=== PATIENT | male | born 1935 | race Caucasian/White ===

== ENCOUNTER 2017-04-21 13:02 | Emergency (ER) | payer MEDICARE ==
--- NOTE | 2017-04-21 15:59 | XRay Report ---
Right knee: Pain and swelling. Periarticular degenerative spurs are identified involving both medial and lateral compartments. There is a large posterior femoral spurring as well as mild spurring at the superior patellofemoral articulation. There is questionable narrowing of the medial joint compartment. The articular surfaces appeared generally smooth. The bones are well-mineralized. There is good alignment of the knee. The soft tissues may be slightly edematous. No focal findings and no effusion. Impression: Degenerative changes. No acute findings suspected.
[2017-04-21] MEDS ORDERED: PERCOCET 5/325 PO ONE (18:06)
--- NOTE | 2017-04-21 18:21 | Emergency Department Report ---
ED Lower Extremity HPI - General Chief Complaint: Fall Stated Complaint: R KNEE PAIN SLIP/FALL Source: patient, family, EMS Mode of arrival: Stretcher Limitations: No Limitations - History of Present Illness Initial Comments: Pt is an 82 yo male who presents s/p ground level fall who per pt and son, slipped while while walking with the walker yesterday morning. Pt denied LOC or head strike and denies any other complaints. Pt has a history of gout and complained of right knee pain. Pt has been ambulatory and weight bearing on the right lower ext per son. pt was using his leg to push himself up in the bed . 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 MD Complaint: knee injury - Related Data Home Medications Medication Instructions Recorded Confirmed Last Taken Acetaminophen/Codeine [Tylenol #3] 1 tab PO Q4HR PRN 02/15/13 02/15/13 02/15/13 Aspirin [Baby Aspirin] 81 mg PO QDAY 02/15/13 02/15/13 02/09/13 Levothyroxine [Synthroid] 50 mcg PO QAM 02/15/13 02/15/13 02/15/13 Paricalcitol [Zemplar] 1 mcg PO 02/15/13 02/15/13 02/15/13 Probenecid/Colchicine 1 each PO 02/15/13 02/15/13 02/15/13 [Probenecid-Colchicine Tabs] Promethazine [Phenergan] 25 mg PO Q6H PRN 02/15/13 02/15/13 02/15/13 amLODIPine [Norvasc] 5 mg PO DAILY 02/15/13 02/15/13 02/15/13 glipiZIDE [Glipizide ER] 5 mg PO 02/15/13 02/15/13 02/15/13 Previous Rx's Medication Instructions Recorded Last Taken Type HYDROcodone/APAP 7.5-325 [[place] 1 each PO Q6HR PRN #16 tablet 04/21/17 Unknown Rx 7.5/325] Allergies Allergy/AdvReac Type Severity Reaction Status Date / Time No Known Allergies Allergy Unverified 02/15/13 22:40 ED Review of Systems ROS: Stated complaint: R KNEE PAIN SLIP/FALL Other details as noted in HPI Comment: All other systems reviewed and negative Musculoskeletal: arthralgia (history of gout), other (right knee pain) Skin: rash (chronic with erythema in the legs ; bruises easily on daily aspirin) ED Past Medical Hx - Past Medical History Hx Hypertension: Yes Hx Diabetes: Yes Additional medical history: sleep apnea, thyroid, gout - Surgical History Additional Surgical History: 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, appendectomy and sinus surgery as a child - Social History Smoking Status: Never Smoker Substance Use Type: None - Medications Home Medications: Home Medications Medication Instructions Recorded Confirmed Last Taken Type Acetaminophen/Codeine [Tylenol #3] 1 tab PO Q4HR PRN 02/15/13 02/15/13 02/15/13 History Aspirin [Baby Aspirin] 81 mg PO QDAY 02/15/13 02/15/13 02/09/13 History Levothyroxine [Synthroid] 50 mcg PO QAM 02/15/13 02/15/13 02/15/13 History Paricalcitol [Zemplar] 1 mcg PO 02/15/13 02/15/13 02/15/13 History Probenecid/Colchicine 1 each PO 02/15/13 02/15/13 02/15/13 History [Probenecid-Colchicine Tabs] Promethazine [Phenergan] 25 mg PO Q6H PRN 02/15/13 02/15/13 02/15/13 History amLODIPine [Norvasc] 5 mg PO DAILY 02/15/13 02/15/13 02/15/13 History glipiZIDE [Glipizide ER] 5 mg PO 02/15/13 02/15/13 02/15/13 History HYDROcodone/APAP 7.5-325 [[place] 1 each PO Q6HR PRN #16 tablet 04/21/17 Unknown Rx 7.5/325] ED Physical Exam - General Limitations: No Limitations ED Course Vital Signs 04/21/17 04/21/17 04/21/17 15:26 17:00 18:12 Temperature 98.6 F Pulse Rate 82 77 Respiratory 18 22 22 Rate Blood Pressure 138/89 Blood Pressure 150/69 [Left] O2 Sat by Pulse 97 97 Oximetry 04/21/17 04/21/17 18:44 18:59 Temperature Pulse Rate 78 Respiratory 22 20 Rate Blood Pressure Blood Pressure 146/61 [Left] O2 Sat by Pulse 97 96 Oximetry Critical care attestation.: If time is entered above; I have spent that time in minutes in the direct care of this critically ill patient, excluding procedure time. ED Disposition Clinical Impression: Right knee sprain, History of gout Disposition: TO HOME OR SELFCARE Is pt being admited?: No Does the pt Need Aspirin: No Condition: Stable Instructions: Knee Sprain (ED) Additional Instructions: be sure to follow up with the Orthopedist;Return sooner if worse or if further concerns; Be sure to follow up with your primary care doctor or the referral doctor given here Prescriptions: HYDROcodone/APAP 7.5-325 [[place] 7.5/325] 1 each PO Q6HR PRN #16 tablet PRN Reason: Pain Referrals: PRIMARY MD GÓMEZ [Primary Care Provider] - 3-5 Days RONEY TRUJILLO MD [Staff Physician] - 3-5 Days
[2017-04-21 19:01] VITALS: BP 146/61
== END 2017-04-21 21:30 | disposition home or self-care (01) ==
LOC: ED 13:02
DX: S83.8X1A Sprain of other specified parts of right knee, initial encounter (principal); E11.9 Type 2 diabetes mellitus without complications; M10.9 Gout, unspecified; I10 Essential (primary) hypertension; G47.30 Sleep apnea, unspecified; Z79.2 Long term (current) use of antibiotics; W17.89XA Other fall from one level to another, initial encounter; Y93.89 Activity, other specified; Y92.89 Other specified places as the place of occurrence of the external cause; Y99.8 Other external cause status